=== PATIENT | male | born 1980 | race African-American/Black ===

== ENCOUNTER 2025-01-08 08:08 | Emergency (ER) | payer OTHER ==
[2025-01-08] MEDS ORDERED: Ketorolac Tromethamine 30 MG (1 mL) VIAL ONE (08:40)
[2025-01-08] MEDS ORDERED: Ondansetron PF 4 MG/2 ML Vial ONE (08:40)
[2025-01-08 08:56] LABS: #Basophils 0.08 10x3/uL (0.0-0.2); #Eosinophils 1.74 10x3/uL (0.0-0.5); #Monocytes 0.84 10x3/uL (0.0-1.1); #Neutrophils 4.95 10x3/uL (1.5-8.4); %Basophils 0.8 % (0.0-2.0); %Eosinophils 17.6 % (0.0-6.0); %Lymphocytes 22.8 % (18.0-47.0); %Monocytes 8.5 % (0.0-10.0); %Neutrophils 50.1 % (40.0-75.0); Hematocrit 38.4 % (38.8-50.0); Hemoglobin 13.8 g/dL (13.5-17.5); Mean Corpuscular HGB CONC 35.9 g/dL (32.0-36.0); Mean Corpuscular Hemoglobin 26.5 pg (27.0-33.0); Mean Corpuscular Volume 73.8 fL (81.2-95.1); Mean Platelet Volume 9.6 fL (7.4-10.4); Platelet Count 387 10x3/uL (150-450); RBC Distribution Width 15.8 % (11.5-14.5); White Blood Cell (WBC) Count 9.88 10x3/uL (3.5-10.5)
[2025-01-08 09:08] LABS: ALT (SGPT) 7 U/L (Less than 45); AST (SGOT) 20 U/L (11-34); Albumin 3.8 g/dL (3.1-4.5); Alkaline Phosphatase 78 U/L (40-110); Anion Gap 10 mmol/L (10-20); BUN (Urea Nitrogen) 9 mg/dL (8.9-20.6); Bilirubin, Total 0.9 mg/dL (0.3-1.2); Calc. Creatinine Clearance 0 mL/min (70-130); Calcium 8.8 mg/dL (7.8-10.44); Carbon Dioxide 25 mmol/L (22-29); Chloride 108 mmol/L (98-107); Estimated GFR 69; Globulin 3.1 g/dL (2.4-3.5); Glucose 93 mg/dL (70-105); Potassium 3.9 mmol/L (3.5-5.1); Protein, Total 6.9 g/dL (6.0-8.3); Sodium 139 mmol/L (136-145)
[2025-01-08 09:26] LABS: Microcytosis SLIGHT = 6-15 cells (100X) (0-5/hpf); Ovalocytes SLIGHT = 2-5 cells (100X) (0-1/hpf)
[2025-01-08 09:27] LABS: Platelet Adequacy Comment Platelets Normal
[2025-01-08 10:55] LABS: Bilirubin Neg (Negative); Blood, Urine Negative (Negative); Clarity Clear (Clear); Glucose, Urine (Dipstick) Normal (Negative); Ketone, Urine Negative (Negative); Leukocyte 25 (Negative); Nitrite Negative (Negative); Protein, Urine (Dipstick) 15 mg/dl (Neg-Trace); Urobilinogen Normal mg/dL (Less than 2); pH, Urine 6.5 (5.0-9.0)
[2025-01-08 11:13] LABS: CAUTI Indications for Culture Pelvic or flank pain; RBC/HPF 0-3 HPF (0-3)
[2025-01-08 11:14] LABS: Bacteria/HPF Rare-Few HPF (None Seen); Urine Culture Reflex No No
[2025-01-08] MEDS ORDERED: Iopamidol 300 61% 100 ML VIAL FS ONE (13:36)
[2025-01-09 01:42] LABS: Chlam.trachomatis by PCR,Urine Not Detected (NotDetected); GC N.gonorrhoeae PCR,UrineVOID Not Detected (NotDetected)
== END 2025-01-08 11:25 | disposition home or self-care (01) ==
LOC: CSHERS 08:08
DX: R10.31 Right lower quadrant pain (principal); F17.210 Nicotine dependence, cigarettes, uncomplicated
CPT/HCPCS: 36415; 74177; 80053; 81001; 83615; 85025; 85046; 87491; 87591; 96374; 96375; J1885; J2405; Q9967

== ENCOUNTER 2025-01-09 08:12 | Emergency (ER) | payer OTHER ==
[2025-01-09] MEDS ORDERED: Ketorolac Tromethamine 30 MG (1 mL) VIAL ONE (08:25)
== END 2025-01-09 08:45 | disposition home or self-care (01) ==
LOC: CSHERS 08:12
DX: R10.31 Right lower quadrant pain (principal); F17.210 Nicotine dependence, cigarettes, uncomplicated
CPT/HCPCS: 96372; 99283; J1885

== ENCOUNTER 2025-09-09 17:51 | Emergency (ER) | payer OTHER ==
[~2025-09-09 17:51] MED LIST: Iopamidol 370 76% 100 ML VIAL ONE
[2025-09-09 19:38] LABS: ALT (SGPT) 19 U/L (Less than 45); AST (SGOT) 40 U/L (11-34); Albumin 4.3 g/dL (3.1-4.5); Alkaline Phosphatase 80 U/L (40-110); Anion Gap 13 mmol/L (10-20); BUN (Urea Nitrogen) 15 mg/dL (8.9-20.6); Bilirubin, Total 1.1 mg/dL (0.3-1.2); Calc. Creatinine Clearance 0 mL/min (70-130); Calcium 9.4 mg/dL (7.8-10.44); Carbon Dioxide 25 mmol/L (22-29); Chloride 106 mmol/L (98-107); Globulin 3.1 g/dL (2.4-3.5); Glucose 109 mg/dL (70-105); Lipase 19 U/L (8-78); Potassium 4.4 mmol/L (3.5-5.1); Sodium 140 mmol/L (136-145)
[2025-09-09 19:39] LABS: Troponin I Less than 0.010 ng/mL (< 0.028)
[2025-09-09 20:09] LABS: Glucose, Urine (Dipstick) Normal (Negative); Leukocyte 500 (Negative); Protein, Urine (Dipstick) 15 mg/dl (Neg-Trace); Specific Gravity, Urine 1.015 (1.005-1.030)
[2025-09-09 20:24] LABS: Bacteria/HPF Rare-Few HPF (None Seen); CAUTI Indications for Culture Pelvic or flank pain; WBC/HPF 0-3 HPF (0-3)
[2025-09-09 20:25] LABS: Urine Culture Reflex No No
[2025-09-09 20:49] LABS: Hematocrit 37.7 % (38.8-50.0); Hemoglobin 14.0 g/dL (13.5-17.5); Mean Corpuscular Hemoglobin 27.0 pg (27.0-33.0); Mean Corpuscular Volume 72.8 fL (81.2-95.1); Platelet Count 402 10x3/uL (150-450); Red Blood Cell (RBC) Count 5.18 10x6/uL (4.32-5.72); White Blood Cell (WBC) Count 14.98 10x3/uL (3.5-10.5)
[2025-09-09 21:36] LABS: MDiff Complete? YES; Microcytosis SLIGHT = 6-15 cells (100X) (0-5/hpf); Platelet Adequacy Comment Appears Adequate
[2025-09-09] MEDS ORDERED: cefTRIAXone (ROCEPHIN) 1 GM VIAL ONE (21:50)
== END 2025-09-09 22:47 ==
LOC: CSHERS 17:51
DX: N39.0 Urinary tract infection, site not specified (principal); F17.210 Nicotine dependence, cigarettes, uncomplicated
CPT/HCPCS: 36415; 70496; 70498; 80053; 81001; 83605; 83690; 84484; 85025; 85046; 93005; 96365; J0696